=== PATIENT | male | born 1995 | race Caucasian/White ===

== ENCOUNTER 2022-01-11 17:30 | Emergency (ER) | payer OTHER ==
[~2022-01-11] VITALS: Ht 177.8 cm; Wt 68.0 kg
[~2022-01-11 17:30] MED LIST: FLORIDE; TRIM200S PR
[2022-01-11] MEDS ORDERED: Triamcinolone A15 G4 TOP (18:38)
== END 2022-01-11 18:44 | disposition home or self-care (01) ==
LOC: ER 17:30
DX: S50.812A Abrasion of left forearm, initial encounter (principal); S50.811A Abrasion of right forearm, initial encounter; L29.9 Pruritus, unspecified; X58.XXXA Exposure to other specified factors, initial encounter
CPT/HCPCS: 99282

== ENCOUNTER 2023-04-30 19:55 | Emergency (ER) | payer BC ==
[~2023-04-30] VITALS: Ht 177.8 cm; Wt 95.2 kg
[~2023-04-30 19:55] MED LIST changes: +IBUP800 PO; +Triamcinolone A15 G4 TOP
[2023-04-30 20:44] VITALS: BP 148/77
[2023-04-30 21:02] LABS: BASOPHILS ABSOLUTE AUTO 0.04 K/mm3 (0.00-0.23); BASOPHILS PERCENT AUTO 0 % (0-2); EOSINOPHILS PERCENT AUTO 1 % (0-6); Hematocrit 42.3 % (37.0-53.0); Hemoglobin 14.7 g/dL (13.5-17.5); IMMATURE GRAN ABSOLUTE AUTO 0.06 K/mm3 (0.00-0.10); IMMATURE GRAN PERCENT AUTO 0 % (0-1); LYMPHOCYTES PERCENT AUTO 17 % (21-46); MONOCYTES ABSOLUTE AUTO 1.01 K/mm3 (0.16-1.47); MONOCYTES PERCENT AUTO 7 % (4-13); Mean Corpuscular HGB 31.1 pg (26.0-34.0); Mean Corpuscular HGB Conc 34.8 g/dL (31.5-36.5); Mean Corpuscular Volume 90 fL (80-100); Mean Platelet Volume 9.2 fL (9.1-12.4); NEUTROPHILS ABSOLUTE AUTO 11.31 K/mm3 (1.96-9.15); NEUTROPHILS PERCENT AUTO 75 % (41-73); Platelet Count 295 K/mm3 (150-400); RDW Coefficient Variation 12.9 % (11.7-14.2); RDW Standard Deviation 42.8 fL (35.1-46.3); Red Blood Cell Count 4.72 M/mm3 (4.30-5.90); White Blood Cell Count 15.02 K/mm3 (4.00-11.30)
[2023-04-30 21:19] LABS: Albumin, Blood 3.7 g/dL (3.4-5.0); Albumin/Globulin Ratio 0.9 (0.8-1.8); Bilirubin, Total 0.5 mg/dL (0.1-1.0); Bun/Creatinine Ratio 11.8 (12.0-20.0); Creatinine, Blood 0.76 mg/dL (0.60-1.20); Potassium, Blood 3.8 mmol/L (3.5-5.5); Total Protein, Blood 7.7 g/dL (6.4-8.2)
[2023-04-30] MEDS ORDERED: AMOCLA875 PO (21:34)
== END 2023-04-30 23:50 | disposition home or self-care (01) ==
LOC: ER 19:55
PROVIDERS: Student in an Organized Health Care Education/Training Program
DX: K12.2 Cellulitis and abscess of mouth (principal); Z79.899 Other long term (current) drug therapy; F17.210 Nicotine dependence, cigarettes, uncomplicated
CPT/HCPCS: 10160; 70487; 80053; 85025; 96372-59; 99283-25; A9270; J1885; Q9967

== ENCOUNTER 2023-12-01 08:32 | Emergency (ER) | payer OTHER ==
[~2023-12-01] VITALS: Ht 175.3 cm; Wt 65.8 kg
[~2023-12-01 08:32] MED LIST changes: +AMOCLA875 PO; +Vistaril25 MG PO
[2023-12-01 08:52] VITALS: BP 135/78
[2023-12-01] MEDS ORDERED: ONDA4 (08:54)
[2023-12-01] MEDS ORDERED: BUSP10 (08:54)
== END 2023-12-01 10:23 | disposition home or self-care (01) ==
LOC: ER 08:32
DX: R20.0 Anesthesia of skin (principal); F41.9 Anxiety disorder, unspecified; Z79.899 Other long term (current) drug therapy
CPT/HCPCS: 70450; 99284-25